=== PATIENT | female | born 1995 | race Two or more races ===

== ENCOUNTER 2019-07-15 19:30 | Emergency (ER) | payer MEDICAID ==
[~2019-07-15] VITALS: Ht 175.3 cm; Wt 104.3 kg
[2019-07-15 19:39] VITALS: BP 136/85
== END 2019-07-16 00:45 | disposition home or self-care (01) ==
LOC: ER 19:33
DX: J06.9 Acute upper respiratory infection, unspecified (principal); F17.210 Nicotine dependence, cigarettes, uncomplicated; F12.90 Cannabis use, unspecified, uncomplicated
CPT/HCPCS: 87070; 87880

== ENCOUNTER 2019-10-31 20:13 | Emergency (ER) | payer MEDICAID ==
[~2019-10-31] VITALS: Ht 175.3 cm; Wt 133.9 kg
[2019-10-31] MEDS ORDERED: LIDOCAINE 1% HCL (LOCAL ANESTH.) INJ 20ML MDV IJ ONE (21:45)
[2019-10-31 22:12] VITALS: BP 111/75
== END 2019-10-31 22:28 | disposition home or self-care (01) ==
LOC: ER 20:15
DX: S61.211A Laceration without foreign body of left index finger without damage to nail, initial encounter (principal); W26.8XXA Contact with other sharp object(s), not elsewhere classified, initial encounter; Y93.89 Activity, other specified; Y92.89 Other specified places as the place of occurrence of the external cause; Y99.8 Other external cause status
CPT/HCPCS: 12001; 99283; J2001

== ENCOUNTER 2022-03-30 12:57 | Inpatient (IN) | payer MEDICAID ==
[~2022-03-30] VITALS: Ht 170.2 cm; Wt 141.8 kg
[2022-03-30 13:15] LABS: Neutrophils # (auto) 6.4 10 ^3/uL (1.6-8.6); Nucleated Red Blood Cells % 0.1 %; Red Cell Distribution Width 17.2 % (11.8-14.3)
[2022-03-30 13:17] LABS: Basophils # (auto) 0.2 10 ^3/uL (0-0.2); Eosinophils # (auto) 0.1 10 ^3/uL (0-0.8); Eosinophils % (auto) 0.7 % (0.0-7.0); Hematocrit 37.2 % (36.0-46.0); Hemoglobin 12.3 g/dL (12.2-16.2); Lymphocytes # (auto) 2.3 10 ^3/uL (0.4-5.4); Lymphocytes % (auto) 24.7 % (10.0-50.0); Mean Corpuscular Hemoglobin 23.8 pg (28.0-32.0); Mean Corpuscular Volume 72.2 fL (80.0-100.0); Monocytes # (auto) 0.4 10 ^3/uL (0-1.3); Monocytes % (auto) 4.3 % (0.0-12.0); Neutrophils % (auto) 68.3 % (37.0-80.0); Red Blood Cells 5.16 10^6/uL (4.0-5.20); White Blood Cell 9.4 10^3/uL (4.4-10.8)
[2022-03-30 13:38] LABS: Albumin 3.2 g/dL (3.4-5.0)
[2022-03-30 13:43] LABS: BUN/Creatinine Ratio 9.4; Bilirubin, Total 0.4 mg/dL (0.2-1.0); Total Protein 7.9 g/dL (6.4-8.2)
[2022-03-30] MEDS ORDERED: IBUPROFEN 800 MG TAB PO ONE (15:15)
[2022-03-30] MEDS ORDERED: PANTOPRAZOLE 40 MG TAB PO ONE (15:15)
[2022-03-30] MEDS ORDERED: COLCHICINE 0.6 MG CAP PO ONE (15:15)
[2022-03-30 15:16] LABS: INR 0.99 (0.9-1.15); Partial Thromboplastin Time 30.6 sec (23.6-33.0)
[2022-03-30] MEDS ORDERED: HEPARIN SODIUM (PORCINE) 5000 UNITS/ML 1ML VIAL IV ONE (17:45)
[2022-03-30] MEDS ORDERED: MORPHINE SULFATE INJ 2 MG/ml SYRG IV PRN (19:45)
[2022-03-30] MEDS ORDERED: NITROGLYCERIN 0.4 MG SL TAB SL PRN (19:45)
[2022-03-30] MEDS ORDERED: KETOROLAC TROMETH 30 MG/ML 1ML VIAL IV PRN (19:45)
[2022-03-30] MEDS ORDERED: cefTRIAXone 1GM/50ML D5W 50 ML IV ONE (20:00)
[2022-03-30] MEDS: IBUPROFEN 800 MG TAB PO SCH (23:06)
[2022-03-30] MEDS: CLINDAMYCIN 600MG IV 50 ML IV SCH (23:08)
[2022-03-31 05:02] VITALS: BP 118/76
[2022-03-31 06:38] LABS: Basophils # (auto) 0 10 ^3/uL (0-0.2); Basophils % (auto) 0.4 % (0.0-2.0); Eosinophils # (auto) 0.1 10 ^3/uL (0-0.8); Hematocrit 34.4 % (36.0-46.0); Hemoglobin 11.3 g/dL (12.2-16.2); Neutrophils # (auto) 4.4 10 ^3/uL (1.6-8.6)
[2022-03-31 06:41] LABS: Eosinophils % (auto) 0.8 % (0.0-7.0); Lymphocytes % (auto) 36.7 % (10.0-50.0); Mean Corpuscular Hemoglobin 23.7 pg (28.0-32.0); Mean Corpuscular Hgb Conc. 32.7 g/dL (32.0-36.0); Mean Corpuscular Volume 72.4 fL (80.0-100.0); Monocytes # (auto) 0.6 10 ^3/uL (0-1.3); Monocytes % (auto) 7.4 % (0.0-12.0); Neutrophils % (auto) 54.7 % (37.0-80.0); Nucleated Red Blood Cells % 0.1 %; Red Blood Cells 4.75 10^6/uL (4.0-5.20); Red Cell Distribution Width 16.9 % (11.8-14.3)
[2022-03-31] MEDS: IBUPROFEN 800 MG TAB PO SCH ×3 (06:53→22:00)
[2022-03-31] MEDS: CLINDAMYCIN 600MG IV 50 ML IV SCH (06:53)
[2022-03-31 07:11] LABS: Albumin 2.9 g/dL (3.4-5.0); Calcium 8.5 mg/dL (8.5-10.1); Potassium 3.8 mmol/L (3.5-5.1)
[2022-03-31 07:15] LABS: Bilirubin, Total 0.2 mg/dL (0.2-1.0)
[2022-03-31] MEDS ORDERED: cefTRIAXone 1GM/50ML D5W 50 ML IV SCH (09:00)
[2022-03-31 09:20] VITALS: BP 99/58
[2022-03-31] MEDS ORDERED: METF-372 PO (10:16)
[2022-03-31] MEDS: COLCHICINE 0.6 MG CAP PO SCH (10:22)
[2022-03-31] MEDS: PANTOPRAZOLE 40 MG TAB PO SCH (10:22)
[2022-03-31 12:28] VITALS: BP 114/70
[2022-03-31] MEDS: CLINDAMYCIN HCL 150 MG CAP PO SCH ×2 (14:01→23:11)
[2022-03-31 15:55] LABS: Urine Bacteria NONE SEEN /hpf (None Seen); Urine Blood Negative /uL (Negative); Urine Mucus FEW (None Seen); Urine Specific Gravity 1.024 (1.001-1.035); Urine WBC 7 /hpf (0 - 5)
[2022-03-31 16:09] LABS: Amphetamine Screen, Urine NEGATIVE (NEGATIVE); Barbiturate Scree,Urine NEGATIVE (NEGATIVE); Benzodiazephine Screen, Urine NEGATIVE (NEGATIVE); Cannabinoid Screen, Urine NEGATIVE (NEGATIVE); Cocaine Screen, Urine NEGATIVE (NEGATIVE); Opiate Scree,Urine NEGATIVE (NEGATIVE); Phencyclidine Screen, Urine NEGATIVE (NEGATIVE)
[2022-03-31 16:13] LABS: Protein, Urine 14.3 mg/dL (0.0-11.9)
[2022-03-31 16:47] VITALS: BP 122/80
[2022-03-31 22:00] VITALS: BP 113/70
[2022-04-01 04:49] VITALS: BP 94/48
[2022-04-01] MEDS: IBUPROFEN 800 MG TAB PO SCH ×2 (06:00→13:59)
[2022-04-01] MEDS: CLINDAMYCIN HCL 150 MG CAP PO SCH ×2 (06:26→14:09)
[2022-04-01 08:00] VITALS: BP 138/85
[2022-04-01 09:00] VITALS: BP 138/85
[2022-04-01] MEDS: COLCHICINE 0.6 MG CAP PO SCH (09:31)
[2022-04-01] MEDS: PANTOPRAZOLE 40 MG TAB PO SCH (09:31)
[2022-04-01 13:00] VITALS: BP 125/90
[2022-04-01] MEDS ORDERED: COLC1TAB3 PO (13:58)
[2022-04-01] MEDS ORDERED: PANT40TA2 PO (13:58)
[2022-04-01] MEDS ORDERED: IBUP600T27 PO (13:58)
[2022-04-01 14:01] VITALS: BP 141/93
[2022-04-01] MEDS ORDERED: CLIN300C8 PO (14:01)
== END 2022-04-01 14:25 | disposition home or self-care (01) | DRG 207 ==
LOC: ER 12:57 → TELE 19:31 → TELE-WESTW 03-31 04:45 → WEST WING 04-01 12:07
PROVIDERS: ADMIT Registered Nurse; ATTEND Internal Medicine Nephrology
DX: I30.9 Acute pericarditis, unspecified (principal); I50.33 Acute on chronic diastolic (congestive) heart failure; I21.A1 Myocardial infarction type 2; E11.9 Type 2 diabetes mellitus without complications; N61.1 Abscess of the breast and nipple; E55.9 Vitamin D deficiency, unspecified; E66.01 Morbid (severe) obesity due to excess calories; F17.210 Nicotine dependence, cigarettes, uncomplicated; Z20.822 Contact with and (suspected) exposure to COVID-19; Z79.84 Long term (current) use of oral hypoglycemic drugs; Z71.6 Tobacco abuse counseling
CPT/HCPCS: 36415; 71045; 76642; 80053; 80307; 81001; 81025; 82570; 83516; 84156; 84484; 84702; 85025; 85610; 85652; 85730; 86141; 86225; 86235; 86850; 86900; 86901; 93005; 93306; 96365; G0378; J0696; J3490

== ENCOUNTER 2023-10-15 12:21 | Emergency (ER) | payer SELFPAY ==
[~2023-10-15] VITALS: Ht 172.7 cm; Wt 145.0 kg
[~2023-10-15 12:21] MED LIST: CLIN300C70 PO; IBUP-1454 PO; METF-372 PO; PANT40TA2 PO; TRAM-297 PO
[2023-10-15] MEDS ORDERED: IBUPROFEN 800 MG TAB PO ONE (12:45)
[2023-10-15 13:31] LABS: Rapid Influenza A Negative (Negative); Rapid Influenza B Negative (Negative)
[2023-10-15 13:36] LABS: COVID19 ANTIGEN SOFIA FIA POSITIVE (NEGATIVE)
[2023-10-15 14:10] LABS: Urine Bacteria FEW /hpf (None Seen); Urine Blood TRACE /uL (Negative); Urine Clarity Clear (Clear); Urine Color Yellow (Yellow); Urine Mucus FEW (None Seen); Urine Protein, UAD TRACE (Negative); Urine Urobilinogen Normal (Negative); Urine WBC 2 /hpf (0 - 5)
[2023-10-15 15:35] VITALS: BP 136/81
[2023-10-15] MEDS ORDERED: IBUP1TAB5 PO (15:42)
[2023-10-15] MEDS ORDERED: PROM1SOL4 PO (15:42)
[2023-10-15] MEDS ORDERED: METH4PAK PO (15:42)
[2023-10-15] MEDS ORDERED: ACET500T58 PO (15:42)
[2023-10-15 15:45] VITALS: TEMP 99.4
[2023-10-15] MEDS ORDERED: DexAMETHasone SOD PHOS 10MG/1ML VIAL INJ PO ONE (15:45)
[2023-10-15 16:59] VITALS: PULSE 115; RESP 20; O2SAT 96
== END 2023-10-15 17:01 | disposition home or self-care (01) ==
LOC: ER 12:21
DX: U07.1 COVID-19 (principal); E11.9 Type 2 diabetes mellitus without complications; F17.210 Nicotine dependence, cigarettes, uncomplicated; F15.90 Other stimulant use, unspecified, uncomplicated
CPT/HCPCS: 36415; 81001; 81025; 82962; 87426; 87804; 99283; J1100